=== PATIENT | female | born 1950 | race Caucasian/White ===

== ENCOUNTER 2020-09-08 08:41 | Inpatient (IN) | payer MEDICARE, SELFPAY ==
[2020-09-08] VITALS (11 sets, daily range): BP systolic 184–219; BP diastolic 57–95; PULSE 69–82; RESP 18–20; TEMP 36.6–37.6; O2SAT 93–96; BMI 30.2
--- NOTE | ~2020-09-08 | XR_ITS ---
EXAMINATION: XR abdomen/kub 1V INDICATION: Cough and nausea TECHNIQUE: Supine view of the abdomen is obtained. COMPARISON: None FINDINGS: The bowel gas pattern is normal. No dilated loops of bowel are seen. There is moderate oste oarthritis of the hips. Phleboliths are noted in the left pelvis. IMPRESSION: 1. . No radiographic correlate for the patient's symptoms. Reviewed, dictated and finalized at location A. O SPECIALIST
--- NOTE | ~2020-09-08 | CT_ITS ---
EXAMINATION: CT abdomen pelvis w con INDICATION: Vomiting TECHNIQUE: Computed tomographic images of the abdomen and pelvis were obtained after the administrati on of 100 cc of Omnipaque 350 intravenous contrast. The dose-length product (DLP) was 1168.06 mGy-cm. Automated exposure control and iterative reconstruction technique were employed. COMPARISON: None available FINDINGS: There are patchy groundglass opacities of the visualized lung bases. Cardiomegaly is noted. There are changes of prior cardiac surgery. Punctate calcifications in an otherwise normal spleen li vesta represent healed granulomatous disease. The gallbladder is surgically absent. There is mild enla rgement of the common bile duct and central intrahepatic ducts which is likely due to post cholecyste ctomy state. The liver, pancreas, and adrenal glands are normal. The kidneys are unremarkable. There is calcified atherosclerosis of the aorta and many of the other arteries. There is a retroaortic left renal vein. No pathologically enlarged abdominal or pelvic lymph nodes are identified. There is no f ree intraperitoneal gas or evidence of bowel obstruction. There is moderate lumbar spondylosis. There is mild osteoarthritis of the hips. IMPRESSION: 1. Groundglass opacities of the visualized lung bases with an appearance compatible with COVID 19 pne umonia versus other multifocal pneumonia. Reviewed, dictated and finalized at location A. ICATIONS COORDINATOR IMPRESSION: 1. Groundglass opacities of the visualized lung bases with an appearance compat ible with COVID 19 pneumonia versus other multifocal pneumonia.
--- NOTE | ~2020-09-08 | XR_ITS ---
EXAMINATION: XR chest 1V portable INDICATION: Cough TECHNIQUE: Portable AP chest at 0912 hours COMPARISON: 11/22/2017 FINDINGS: The lungs are free of acute opacities. There is no pleural effusion or pneumothorax. Cardio megaly is noted. Median sternotomy wires and mediastinal surgical clips are seen, likely from prior c oronary artery bypass grafting. IMPRESSION: 1. No acute cardiopulmonary abnormality. Reviewed, dictated and finalized at location A. NSIC DOCUMENT EXAMINER
--- NOTE | ~2020-09-08 | CT_ITS ---
EXAMINATION: CT brain wo con INDICATION: Vomiting and altered mental status COMPARISON: 11/21/2017 TECHNIQUE: Standard unenhanced head CT. The dose-length product (DLP) was 605.33 mGy-cm. The mA was a djusted according to patient size. Iterative reconstruction technique was employed. FINDINGS: There is no acute intraparenchymal hemorrhage. No evidence of mass lesion. No evidence of a cute infarction. There is mild periventricular and subcortical hypodensity probably related to small vessel ischemic disease. There is mild prominence of the sulci and ventricles related to cerebral atr ophy. Intracranial calcified cerebral atherosclerosis is noted. There are no extra-axial collections. There is no mass effect or midline shift. Changes in the globes are likely from ocular lens surgery. There is mild mucosal thickening of the paranasal sinuses. IMPRESSION: 1. No acute intracranial abnormality. 2. Age related findings. Reviewed, dictated and finalized at location A. HANGER
--- NOTE | ~2020-09-08 | XR_ITS ---
XR abdomen/kub 1V DATE: 09/15/2020 14:24 INDICATION: Constipation for a week TECHNIQUE: Portable supine AP views COMPARISON: 09/08/2020 CT abdomen pelvis FINDINGS: There is a prominent amount of fecal material in the sigmoid colon, with gas throughout muc h of the remainder of the colon. No small or large bowel abnormal dilatation is noted. No apparent in traperitoneal free air. No visceromegaly is detected. Status post sternotomy. Mild to moderate patchy bilateral pulmonary infiltrates or atelectasis. IMPRESSION: Prominent amount of feces and air in colon; no apparent obstruction Mild to moderate patchy bilateral pulmonary infiltrates or atelectasis Reviewed, dictated and finalized at Location A. Reviewed, dictated and finalized at location A. MAKER WOOD
--- NOTE | 2020-09-08 09:04 | ED.NAVMDI ---
HPI - Nausea/Vomiting/Diarrhea General Chief complaint: Nausea/Vomiting/Diarrhea Stated complaint: nausea Time Seen by Provider: 09/08/20 08:47 History of Present Illness HPI Narrative: 69 yo female presents from home for nausea and vomiting. She reportedly has chronic issues with this. She was just seen at the emergency depart at [facility] a few days ago for the same and left AMA. She tells me she feels awful, but is not answering most questions. History limited by medical condition. Related Data Home Medications Medication Instructions Recorded Confirmed aspirin 81 mg PO DAILY 09/08/20 09/08/20 bupropion HCl [Wellbutrin XL] 300 mg PO QAM 09/08/20 09/08/20 clopidogrel [Plavix] 75 mg PO DAILY 09/08/20 09/08/20 doxycycline monohydrate 100 mg PO BID 09/08/20 09/08/20 fluoxetine 60 mg PO DAILY 09/08/20 09/08/20 gabapentin 100 mg PO TID 09/08/20 09/08/20 hydralazine 100 mg PO TID 09/08/20 09/08/20 hydrochlorothiazide 25 mg PO DAILY 09/08/20 09/08/20 hydrocodone-acetaminophen [[place]] 1 tablet PO Q4H PRN 09/08/20 09/08/20 insulin glargine [Lantus Solostar 14 unit SUBCUT QPM 09/08/20 09/08/20 U-100 Insulin] insulin lispro [Humalog KwikPen 12 unit SUBCUT TID 09/08/20 09/08/20 Insulin] metoclopramide HCl [Reglan] 10 mg PO BID PRN 09/08/20 09/08/20 metoprolol tartrate 25 mg PO BID 09/08/20 09/08/20 ondansetron [Zofran ODT] 4 mg PO Q6H PRN 09/08/20 09/08/20 polyethylene glycol 3350 [Miralax] 17 g PO DAILY PRN 09/08/20 09/08/20 sennosides [Senokot] 8.6 mg PO BID 09/08/20 09/08/20 tamsulosin [Flomax] 0.4 mg PO HS 09/08/20 09/08/20 Allergies Allergy/AdvReac Type Severity Reaction Status Date / Time No Known Allergies Allergy Verified 09/08/20 08:47 Review of Systems Review of Systems: ROS unobtainable: Yes unobtainable due to medical condition [facility] Past Medical History Medical History (Updated 09/08/20 @ 18:08 by Carlos Benavides MD) Depression Diabetes mellitus HTN (hypertension) Myocardial infarction Social History Social History (Updated 09/08/20 @ 09:09 by Carlos Benavides MD) Smoking status: Never smoker Second hand tobacco smoke exposure: No Alcohol intake: never Substance use: never Substance use type: does not use Gender identity (if verbalized by the patient): Female Sexual Orientation (if Verbalized by the Patient): Straight or Heterosexual Spiritual care concerns: No Exam Const: General: no acute distress, alert and ill appearing chronically Orientation/consciousness: patient oriented x3 HENMT: Mouth: Yes dry mucous membranes Resp: Effort & Inspection: normal respiratory effort Auscultation: rhonchi Cardio: Rate: regular rate Rhythm: regular rhythm GI: Inspection: non-distended GI Palp: Yes Soft to palpation and No Tenderness to palpation present (GI) Skin: General skin exam: normal color Neuro: General: patient oriented x3 and moves all extremities Speech: normal speech Extrem: General: no edema Course Vital Signs Vital signs: Vital Signs Temperature 36.6 C 09/08/20 08:41 Pulse Rate 77 09/08/20 08:41 Respiratory Rate 20 09/08/20 08:41 Blood Pressure 217/95 H 09/08/20 08:41 Pulse Oximetry 95 09/08/20 08:41 Temperature 37.6 C 09/08/20 10:39 Pulse Rate 72 09/08/20 16:00 Respiratory Rate 18 09/08/20 14:15 Blood Pressure 187/64 H 09/08/20 14:15 Pulse Oximetry 94 09/08/20 14:15 MDM - Nausea/Vomiting/Diarrhea Differential Diagnosis Differential diagnosis: Likely gastroenteritis, dehydration and other (SBO, DKA, GERD, IBS) Medical Records Attestation: I reviewed the patient's medical records. Lab Data Attestation: I reviewed the patient's lab results. Result diagrams: 09/08/20 08:52 09/08/20 17:00 Labs: Lab Results 09/08/20 09/08/20 09/08/20 Range/Units 08:52 08:52 10:21 WBC 7.4 (4.5-10.0) K/mm3 RBC 4.49 (4.2-5.4) M/mm3 Hgb 12.4 (12.0-15.0) g/dL Hct 37.6
[2020-09-08 09:09] LABS: Basophils Percent Auto 0.1 % (0.2-1.2); Hematocrit 37.6 % (37.0-47.0); Hemoglobin 12.4 g/dL (12.0-15.0); Immature Granulocyte Absolute 0.03 K/mm3 (0.00-0.031); Immature Granulocyte Percent A 0.4 % (0-0.5); Lymphocytes Percent Auto 9.4 % (18.3-44.2); Mean Corpuscular Hemoglobin 27.6 pg (26-34); Mean Corpuscular Volume 83.7 fl (80-100); Mean Platelet Volume 11.8 fl (7.4-10.4); Monocytes Absolute Auto 0.6 K/mm3 (0.1-0.6); Monocytes Percent Auto 7.8 % (2.6-8.5); Neutrophils Absolute Auto 6.1 K/mm3 (1.3-6.7); Neutrophils Percent Auto 82.3 % (45.5-73.1); Platelet Count Result 228 k/mm3 (150-375); Red Blood Count 4.49 M/mm3 (4.2-5.4); Red Cell Distribution Width 14.4 % (11.5-14.5); White Blood Count 7.4 K/mm3 (4.5-10.0)
--- NOTE | 2020-09-08 09:15 | PC.NURSE ---
PT SIGNED FORM FOR MEDICAL RELEASE FROM [facility], CONSENT FAXED.
[2020-09-08] MEDS: SODIUM CHLORIDE 0.9% IV 1,000 ML 999 ML IV CONT (09:19)
[2020-09-08 09:23] LABS: Alanine Aminotransferase 34 U/L (4-35); Albumin Level 3.9 g/dL (3.5-5.1); Alkaline Phosphatase 147 U/L (38-126); Anion Gap 8 mmol/L (8-16); Aspartate Amino Transferase 40 U/L (14-36); Bilirubin,Total 0.9 mg/dL (0.2-1.3); Blood Urea Nitrogen 37 mg/dL (7-17); Calcium 9.1 mg/dL (8.4-10.2); Carbon Dioxide 32 mmol/L (22-30); Chloride 96 mmol/L (98-107); Estimated Glomerular Filt Rate 34; Glucose 333 mg/dL (65-105); Lipase 46 U/L (23-300); Potassium 3.6 mmol/L (3.4-5.0); Sodium 136 mmol/L (137-145)
[2020-09-08] MEDS: hydrALAZINE HCL 20 MG/ML VIAL IV PUSH (09:50)
[2020-09-08 10:41] LABS: Add Urine Microscopic? YES; Appearance Urine Clear (Clear); Bacteria Urine Trace /hpf; Bilirubin Urine Negative (Negative); Blood Urine Negative (Negative); Color Urine Yellow (Yellow); Glucose Urine UA 3+ mg/dL (Negative); Ketones Urine Negative (Negative); Leukocyte Esterase Ur Negative LEU/UL (Negative); Nitrate Urine Negative (Negative); Protein Urine 3+ mg/dL (Negative); Squamous Epithelial Cell Urine Rare /hpf (Few); Urobilinogen Urine Negative mg/dL (<2.0); WBC Urine 0-3 /hpf
[2020-09-08] MEDS: LABETALOL HCL INJ 100 MG/20 ML VIAL 20 MG IV PUSH (10:50)
--- NOTE | 2020-09-08 13:45 | PM.IMHP ---
H&P: HPI History of Present Illness Date/Time: 09/08/20 13:45 Chief Complaint: Nausea and vomiting. 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 She is a fair historian but is quite vague during our interview. She feels ?awful? and has for several days with generalized malaise, body aches, nausea, and vomiting. She is tired and run down and has no energy. Apparently she was seen emergency department at [facility] several days ago but left against medical advice. A CT of the abdomen and pelvis done on arrival to the emergency department demonstrated ground-glass opacities of the visualized lung bases consistent with pneumonia, possibly COVID-19 pneumonia. She has no known exposure to those positive for COVID-19 but lives with her daughter and son-in-law, who worked outside the home. No high fevers, chills, or sweats. She denies significant headache. No sinus congestion, rhinorrhea, otalgia, or odynophagia. No chest pain, cough, or shortness of breath. She denies dysphagia and concerns for aspiration. Review of Systems Review of Systems: Narrative: Twelve systems were reviewed with pertinent positives and negatives as per HPI. She has not been able to hold down her medication today due to ongoing nausea and vomiting. Glucose has been running high. No blurry vision, polydipsia, or polyuria. Her diabetes complicated by retinopathy, neuropathy, nephropathy, and gastroparesis. No dysuria. Currently in a walking boot on the right after having several surgeries due to ankle fracture. Except as documented, all other systems were reviewed and are negative. [facility] Past Medical History Medical History (Updated 09/08/20 @ 21:17 by Rosangela Chau PA-C) Chronic anemia Chronic kidney disease, stage 3 Baseline creatinine runs between 1.4 and 1.60. Depression Dyslipidemia Hypertension Insulin dependent type 2 diabetes mellitus Complicated by retinopathy, nephropathy, neuropathy, and gastroparesis. Myocardial infarction Obstructive sleep apnea Surgical History Surgical History (Updated 09/08/20 @ 21:14 by Rosangela Chau PA-C) History of ankle surgery ORIF right ankle fracture. History of cholecystectomy History of colonoscopy with polypectomy History of four vessel coronary artery bypass graft (~1999) History of heart artery stent History of hysterectomy (~1979) History of left knee replacement History of tonsillectomy Family History Family History (Updated 09/08/20 @ 21:12 by Rosangela Chau PA-C) Other Diabetes mellitus Heart disease Social History Social History (Updated 09/08/20 @ 21:12 by Rosangela Chau PA-C) Social History: The patient lives in [place] with her daughter and son-in-law. 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 Lifelong nonsmoker. No alcohol or illicit substance use. She designates her daughter Allie as her surrogate decision maker and wishes to be a full code. Smoking status: Never smoker Second hand tobacco smoke exposure: No Alcohol intake: never Substance use: never Substance use type: does not use Gender identity (if verbalized by the patient): Female Sexual Orientation (if Verbalized by the Patient): Straight or Heterosexual Spiritual care concerns: No Meds Home Medications and Allergies Home Medications Medication Instructions Recorded Confirmed Type aspirin 81 mg PO DAILY 09/08/20 09/08/20 History bupropion HCl [Wellbutrin XL] 300 mg PO QAM 09/08/20 09/08/20 History clopidogrel [Plavix] 75 mg PO DAILY 09/08/20 09/08/20 History doxycycline monohydrate 100 mg PO BID 09/08/20 09/08/20 History fluoxetine 60 mg PO DAILY
--- NOTE | 2020-09-08 14:55 | ADMGEN ---
This patient, Joann Alejandro, was admitted to [facility] Surg Room 303-01. Patient/family oriented to hospital policies and general routines including ID bracelet, bed and alarms, visiting hours, pain management, procedures, bathroom and other care routines, personal items, smoking policy, room service/diet, and visiting hours. Information on how to activate the Rapid Response Team has been discussed. Patient/Family are encouraged to report perceived risks to care and to ask questions if they do not understand what they are told or what they should do.
--- NOTE | 2020-09-08 15:56 | ECG_ITS ---
Measurements Intervals [place] Rate: 74 P: 29 WI: 135 QRS: 55 QRSD: 106 T: 55 QT: 441 QTc: 490 Interpretive Statements SINUS RHYTHM VENTRICULAR BIGEMINY NONSPECIFIC ST ABNORMALITY- DIFFUSE LEADS BASELINE ARTIFACT- I, II, III, AVR, AVL ,AVF ABNORMAL ECG Electronically Signed On 09-08-2020 16:29:39 [employer] by Kelton Solorio D.O.
--- NOTE | 2020-09-08 17:04 | PC.NURSE ---
Daughter Allie Called to make sure we knew that pt has surgical wounds under her cast. Also to let us know she is one antibiotics for this.
[2020-09-08 17:24] LABS: Anion Gap 9 mmol/L (8-16); Blood Urea Nitrogen 36 mg/dL (7-17); Calcium 8.4 mg/dL (8.4-10.2); Carbon Dioxide 30 mmol/L (22-30); Chloride 96 mmol/L (98-107); Estimated CRCL calculation 31 ml/min; Estimated Glomerular Filt Rate 34; Glucose 378 mg/dL (65-105); Magnesium 1.4 mg/dL (1.6-2.3); Potassium 3.5 mmol/L (3.4-5.0); Sodium 135 mmol/L (137-145)
[2020-09-08] MEDS: MAGNESIUM SULF 2 GM/WATER 50ML 2 GM/50 ML BAG IVPB (21:44)
[2020-09-08 21:57] LABS: Glucose Point of Care 318 (65-105)
[2020-09-08] MEDS: TAMSULOSIN HCL 0.4 MG CAPSULE PO (22:00)
[2020-09-08] MEDS: METOPROLOL TARTRATE 25 MG TABLET PO (22:00)
[2020-09-08] MEDS: hydrALAZINE HCL 50 MG TABLET 100 MG PO (22:00)
[2020-09-08] MEDS: GABAPENTIN 100 MG CAPSULE PO (22:00)
[2020-09-08 23:03] LABS: Hemoglobin A1C 7.4 % (<5.7)
[2020-09-09] VITALS (8 sets, daily range): BP systolic 127–190; BP diastolic 45–98; PULSE 63–88; RESP 16–20; TEMP 36.3–37.4; O2SAT 93–97
[2020-09-09] MEDS: hydrALAZINE HCL 20 MG/ML VIAL 10 MG IV PUSH (04:18)
[2020-09-09 06:12] LABS: Hematocrit 35.2 % (37.0-47.0); Hemoglobin 11.6 g/dL (12.0-15.0); Mean Corpuscular Hemoglobin 27.9 pg (26-34); Mean Corpuscular Volume 84.6 fl (80-100); Mean Platelet Volume 12.1 fl (7.4-10.4); Platelet Count Result 197 k/mm3 (150-375); Red Blood Count 4.16 M/mm3 (4.2-5.4); Red Cell Distribution Width 14.7 % (11.5-14.5); White Blood Count 7.1 K/mm3 (4.5-10.0)
[2020-09-09 06:26] LABS: Alanine Aminotransferase 30 U/L (4-35); Albumin Level 3.5 g/dL (3.5-5.1); Alkaline Phosphatase 134 U/L (38-126); Anion Gap 7 mmol/L (8-16); Aspartate Amino Transferase 36 U/L (14-36); Bilirubin,Total 0.7 mg/dL (0.2-1.3); Blood Urea Nitrogen 41 mg/dL (7-17); CRP 2.9 mg/dL (<1.0); Calcium 8.8 mg/dL (8.4-10.2); Carbon Dioxide 30 mmol/L (22-30); Chloride 99 mmol/L (98-107); Estimated CRCL calculation 31 ml/min; Estimated Glomerular Filt Rate 34; Glucose 334 mg/dL (65-105); Lactate Dehydrogenase 529 U/L (313-618); Potassium 3.4 mmol/L (3.4-5.0); Sodium 136 mmol/L (137-145)
[2020-09-09 09:04] LABS: Glucose Point of Care 406 (65-105)
[2020-09-09] MEDS: GABAPENTIN 100 MG CAPSULE PO ×3 (10:43→18:42)
[2020-09-09] MEDS: METOPROLOL TARTRATE 25 MG TABLET PO ×2 (10:43→21:10)
[2020-09-09] MEDS: POTASSIUM CHLORIDE 20 MEQ TABLET 40 MEQ PO (10:43)
[2020-09-09] MEDS: SENNOSIDES 8.6 MG TABLET PO ×2 (10:43→18:42)
[2020-09-09] MEDS: FLUoxetine HCL 20 MG CAPSULE 60 MG PO (10:43)
[2020-09-09] MEDS: buPROPion HCL XL (24 HR) 150 MG TABCR 300 MG PO (10:43)
[2020-09-09] MEDS: hydroCHLOROthiazide 25 MG TABLET PO (10:44)
[2020-09-09] MEDS: INSULIN ASPART (*BKC) 100 UNITS/ML SUB-Q ×3 (10:44→18:42)
[2020-09-09] MEDS: ASPIRIN 81 MG ENTERIC TABLET PO (10:44)
[2020-09-09] MEDS: CLOPIDOGREL BISULFATE 75 MG TABLET PO (10:44)
[2020-09-09] MEDS: hydrALAZINE HCL 50 MG TABLET 100 MG PO ×3 (10:44→18:42)
[2020-09-09 12:28] LABS: Glucose Point of Care 456 (65-105)
[2020-09-09] MEDS: INSULIN GLARGINE (*BKC) 100 UNITS/ML 10 UNITS SUB-Q (13:28)
[2020-09-09] MEDS: ONDANSETRON INJ 4 MG/2 ML VIAL IV PUSH ×2 (13:29→21:09)
--- NOTE | 2020-09-09 14:42 | PM.IMPN ---
Progress Note: A&P Assessment and Plan (1) Nausea & vomiting: Code(s): R11.2 - Nausea with vomiting, unspecified Status: Acute Assessment and Plan: 09/09/20 14:42 patient is 69-year-old female with history of type 2 diabetes insulin dependent, with diabetic gastroparesis and persistent nausea or vomiting patient presented emergency department with the complaints of nausea or vomiting CT scan of the abdomen was done to further evaluate, did not show significant abdominal pathology however the lung bases suggest COVID-19 pneumonia ground-glass appearance although see denies any complaint of cough shortness of breath fever or chills, patient is very hard of fairly unable to provide detailed review of symptoms or history, is been isolated, will follow-up and COVID, patient is treated with doxycycline and Rocephin will follow-up on COVID if positive will start the patient on dexamethasone, remdesivir and further recommendation to follow. (2) Suspected 2019-nCoV infection: Code(s): Z20.822 - Contact with and (suspected) exposure to COVID-19 Status: Acute Assessment and Plan: Follow-up intestine plan accordingly (3) Dehydration: Code(s): E86.0 - Dehydration Status: Acute Assessment and Plan: Will gently hydrate the patient (4) Insulin dependent type 2 diabetes mellitus: Code(s): E11.9 - Type 2 diabetes mellitus without complications; Z79.4 - [facility] (current) use of insulin Status: Inactive Assessment and Plan: Will continue home regimen and monitor with sliding scale adjust her insulin as needed (5) Dyslipidemia: Code(s): E78.5 - Hyperlipidemia, unspecified Status: Inactive Assessment and Plan: Continue home regimen (6) Hypertension: Code(s): I10 - Essential (primary) hypertension Status: Inactive Assessment and Plan: Continue home regimen and monitor (7) Chronic kidney disease, stage 3: Code(s): N18.30 - Chronic kidney disease, stage 3 unspecified Status: Inactive Assessment and Plan: Acute on chronic kidney disease most likely secondary to dehydration will gently hydrate the patient and monitor her kidney function (8) Obstructive sleep apnea: Code(s): G47.33 - Obstructive sleep apnea (adult) (pediatric) Status: Inactive Assessment and Plan: Will try to get CPAP for the patient Additional Plan The patient is being admitted to the hospital given ongoing nausea and vomiting with the inability to hold down medications. Her blood pressures have thus been poorly controlled due to same. CT of the abdomen pelvis did not show any acute intra-abdominal findings but did note pneumonia in the lower lobes of the lung. She is thus a person under investigation for COVID-19 and has been placed in isolation pending SARS-CoV-2 by PCR. She did receive IV fluids in the emergency department which I will discontinue to avoid volume overload. Will continue antibiotics for now. Her home medications will be reviewed and resumed, transition to IV form if needed should she continued to have vomiting. Her creatinine is stable on review of previous labs. I suspect her hemoglobin and hematocrit will fall somewhat hydration. Check hemoglobin A1c. Initiate sliding scale insulin, Accu-Cheks, and hypoglycemic protocol. CPAP available for her use while hospitalized. Subjective Date/time seen: 09/09/20 14:42 patient is 69-year-old female with history of type 2 diabetes insulin dependent, with diabetic gastroparesis and persistent nausea or vomiting patient presented emergency department with the complaints of nausea or vomiting CT scan of the abdomen was done to further evaluate, did not show significant abdominal pathology however the lung bases suggest COVID-19 pneumonia ground-glass appearance although see denies any complaint of cough shortness of breath fever or chills, patient is very hard of fairly unable to provid
[2020-09-09 17:57] LABS: Glucose Point of Care 243 (65-105)
[2020-09-09 18:27] LABS: SARS-CoV-2 RNA PCR Positive
[2020-09-09] MEDS: INSULIN GLARGINE (*BKC) 100 UNITS/ML 14 UNITS SUB-Q (18:42)
[2020-09-09] MEDS: TAMSULOSIN HCL 0.4 MG CAPSULE PO (21:10)
[2020-09-09 21:36] LABS: Glucose Point of Care 220 (65-105)
[2020-09-10] VITALS (10 sets, daily range): BP systolic 152–188; BP diastolic 40–72; PULSE 61–75; RESP 16–22; TEMP 37.1–37.8; O2SAT 91–96
[2020-09-10 06:13] LABS: Basophils Percent Auto 0.1 % (0.2-1.2); Hematocrit 34.1 % (37.0-47.0); Hemoglobin 11.2 g/dL (12.0-15.0); Immature Granulocyte Absolute 0.07 K/mm3 (0.00-0.031); Immature Granulocyte Percent A 0.7 % (0-0.5); Lymphocytes Absolute Auto 0.87 K/mm3 (0.9-3.2); Lymphocytes Percent Auto 8.7 % (18.3-44.2); Mean Corpuscular HGB Conc 32.8 g/dl (32-36); Mean Corpuscular Hemoglobin 27.3 pg (26-34); Mean Corpuscular Volume 83.2 fl (80-100); Mean Platelet Volume 12.1 fl (7.4-10.4); Monocytes Absolute Auto 0.6 K/mm3 (0.1-0.6); Neutrophils Absolute Auto 8.4 K/mm3 (1.3-6.7); Neutrophils Percent Auto 84.5 % (45.5-73.1); Platelet Count Result 213 k/mm3 (150-375); Red Cell Distribution Width 14.7 % (11.5-14.5)
[2020-09-10 06:26] LABS: Alanine Aminotransferase 25 U/L (4-35); Albumin Level 3.4 g/dL (3.5-5.1); Alkaline Phosphatase 119 U/L (38-126); Anion Gap 8 mmol/L (8-16); Aspartate Amino Transferase 36 U/L (14-36); Bilirubin,Total 0.7 mg/dL (0.2-1.3); Blood Urea Nitrogen 51 mg/dL (7-17); CRP 4.4 mg/dL (<1.0); Calcium 8.8 mg/dL (8.4-10.2); Carbon Dioxide 31 mmol/L (22-30); Chloride 98 mmol/L (98-107); Estimated CRCL calculation 22 ml/min; Estimated Glomerular Filt Rate 23; Glucose 164 mg/dL (65-105); Magnesium 1.9 mg/dL (1.6-2.3); Potassium 3.2 mmol/L (3.4-5.0); Sodium 137 mmol/L (137-145)
[2020-09-10] MEDS: ONDANSETRON INJ 4 MG/2 ML VIAL IV PUSH ×2 (08:13→12:45)
[2020-09-10 08:18] LABS: Glucose Point of Care 176 (65-105)
[2020-09-10] MEDS: hydrALAZINE HCL 50 MG TABLET 100 MG PO ×3 (10:02→16:25)
[2020-09-10] MEDS: ASCORBIC ACID 500 MG TABLET PO (10:05)
[2020-09-10] MEDS: buPROPion HCL XL (24 HR) 150 MG TABCR 300 MG PO (10:06)
[2020-09-10] MEDS: ASPIRIN 81 MG ENTERIC TABLET PO (10:06)
[2020-09-10] MEDS: CHOLECALCIFEROL 1,000 UNITS TABLET 1000 UNITS PO (10:07)
[2020-09-10] MEDS: DEXAMETHASONE SOD PHOS INJ 4 MG/ML VIAL 6 MG IV PUSH (10:08)
[2020-09-10] MEDS: CLOPIDOGREL BISULFATE 75 MG TABLET PO (10:08)
[2020-09-10] MEDS: FLUoxetine HCL 20 MG CAPSULE 60 MG PO (10:09)
[2020-09-10] MEDS: GABAPENTIN 100 MG CAPSULE PO ×3 (10:10→16:25)
[2020-09-10] MEDS: hydroCHLOROthiazide 25 MG TABLET PO (10:10)
[2020-09-10] MEDS: METOPROLOL TARTRATE 25 MG TABLET PO ×2 (10:11→20:03)
[2020-09-10] MEDS: SENNOSIDES 8.6 MG TABLET PO ×2 (10:12→16:25)
[2020-09-10] MEDS: ZINC SULFATE 220 MG CAPSULE PO (10:13)
--- NOTE | 2020-09-10 12:03 | PCPTNOTE ---
The PT treatment was unable to be completed today due to patient refusal. Will continue per Plan of Care frequency and duration.
[2020-09-10] MEDS: hydrALAZINE HCL 20 MG/ML VIAL 10 MG IV PUSH (12:46)
[2020-09-10] MEDS: INSULIN ASPART (*BKC) 100 UNITS/ML SUB-Q ×2 (12:49→17:51)
[2020-09-10 12:56] LABS: Glucose Point of Care 313 (65-105)
--- NOTE | 2020-09-10 14:27 | PM.IMPN ---
Progress Note: A&P Assessment and Plan (1) Nausea & vomiting: Code(s): R11.2 - Nausea with vomiting, unspecified Status: Acute Assessment and Plan: 09/10/20 14:27 patient is 69-year-old female with history of type 2 diabetes insulin dependent, with diabetic gastroparesis and persistent nausea or vomiting patient presented emergency department with the complaints of nausea or vomiting CT scan of the abdomen was done to further evaluate, did not show significant abdominal pathology however the lung bases suggest COVID-19 pneumonia ground-glass appearance although see denies any complaint of cough shortness of breath fever or chills, patient is very hard of fairly unable to provide detailed review of symptoms or history, is been isolated, will follow-up and COVID, patient is treated with doxycycline and Rocephin will follow-up on COVID if positive will start the patient on dexamethasone, remdesivir and further recommendation to follow. 09/10/20 today patient COVID test is positive I have started the patient dexamethasone, vitamin-D, vitamin-C, zinc and patient is receiving oxygen, unable to give patient remdesivir as creatinine is elevated and GFR is 23, patient also has a complaint of nausea and constipation, unable to give patient Reglan interaction with SSRI, will get the patient Colace and MiraLax scheduled, patient is very hard of hearing and currently is quite somnolent will continue present management and further recommendation to follow (2) Suspected 2019-nCoV infection: Code(s): Z20.822 - Contact with and (suspected) exposure to COVID-19 Status: Acute Assessment and Plan: Follow-up intestine plan accordingly (3) Dehydration: Code(s): E86.0 - Dehydration Status: Acute Assessment and Plan: Will gently hydrate the patient (4) Insulin dependent type 2 diabetes mellitus: Code(s): E11.9 - Type 2 diabetes mellitus without complications; Z79.4 - terminologist (current) use of insulin Status: Inactive Assessment and Plan: Will continue home regimen and monitor with sliding scale adjust her insulin as needed (5) Dyslipidemia: Code(s): E78.5 - Hyperlipidemia, unspecified Status: Inactive Assessment and Plan: Continue home regimen (6) Hypertension: Code(s): I10 - Essential (primary) hypertension Status: Inactive Assessment and Plan: Continue home regimen and monitor (7) Chronic kidney disease, stage 3: Code(s): N18.30 - Chronic kidney disease, stage 3 unspecified Status: Inactive Assessment and Plan: Acute on chronic kidney disease most likely secondary to dehydration will gently hydrate the patient and monitor her kidney function (8) Obstructive sleep apnea: Code(s): G47.33 - Obstructive sleep apnea (adult) (pediatric) Status: Inactive Assessment and Plan: Will try to get CPAP for the patient Subjective Date/time seen: 09/10/20 14:27 patient is 69-year-old female with history of type 2 diabetes insulin dependent, with diabetic gastroparesis and persistent nausea or vomiting patient presented emergency department with the complaints of nausea or vomiting CT scan of the abdomen was done to further evaluate, did not show significant abdominal pathology however the lung bases suggest COVID-19 pneumonia ground-glass appearance although see denies any complaint of cough shortness of breath fever or chills, patient is very hard of fairly unable to provide detailed review of symptoms or history, is been isolated, will follow-up and COVID, patient is treated with doxycycline and Rocephin will follow-up on COVID if positive will start the patient on dexamethasone, remdesivir and further recommendation to follow. 09/10/20 today patient COVID test is positive I have started the patient dexamethasone, vitamin-D, vitamin-C, zinc and patient is receiving oxygen, unable to give patient remdesivir as creatinine is el
[2020-09-10] MEDS: DOCUSATE SODIUM 100 MG CAPSULE PO ×2 (16:25→20:03)
[2020-09-10] MEDS: polyethylene glycoL 3350 17 GM POWD.PACK PO (16:25)
[2020-09-10 17:10] LABS: Glucose Point of Care 246 (65-105)
[2020-09-10] MEDS: INSULIN GLARGINE (*BKC) 100 UNITS/ML 14 UNITS SUB-Q (17:51)
[2020-09-10] MEDS: TAMSULOSIN HCL 0.4 MG CAPSULE PO (20:03)
[2020-09-10 21:07] LABS: Glucose Point of Care 230 (65-105)
[2020-09-11] VITALS (8 sets, daily range): BP systolic 117–171; BP diastolic 43–66; PULSE 48–80; RESP 18–20; TEMP 36.6–37.1; O2SAT 93–96
[2020-09-11] MEDS: ONDANSETRON INJ 4 MG/2 ML VIAL IV PUSH ×2 (04:29→10:36)
[2020-09-11 06:22] LABS: Basophils Percent Auto 0.1 % (0.2-1.2); Eosinophils Percent Auto 0.1 % (0-4.4); Hematocrit 36.6 % (37.0-47.0); Immature Granulocyte Absolute 0.06 K/mm3 (0.00-0.031); Immature Granulocyte Percent A 0.6 % (0-0.5); Lymphocytes Percent Auto 8.5 % (18.3-44.2); Mean Corpuscular HGB Conc 32.8 g/dl (32-36); Mean Corpuscular Hemoglobin 27.9 pg (26-34); Mean Corpuscular Volume 85.1 fl (80-100); Mean Platelet Volume 12.4 fl (7.4-10.4); Monocytes Absolute Auto 0.6 K/mm3 (0.1-0.6); Monocytes Percent Auto 5.8 % (2.6-8.5); Neutrophils Percent Auto 84.9 % (45.5-73.1); Platelet Count Result 216 k/mm3 (150-375); Red Cell Distribution Width 14.7 % (11.5-14.5); White Blood Count 9.5 K/mm3 (4.5-10.0)
[2020-09-11 07:03] LABS: Alanine Aminotransferase 27 U/L (4-35); Albumin Level 3.4 g/dL (3.5-5.1); Alkaline Phosphatase 121 U/L (38-126); Anion Gap 11 mmol/L (8-16); Aspartate Amino Transferase 45 U/L (14-36); Bilirubin,Total 0.7 mg/dL (0.2-1.3); Blood Urea Nitrogen 55 mg/dL (7-17); CRP 5.3 mg/dL (<1.0); Calcium 8.5 mg/dL (8.4-10.2); Carbon Dioxide 28 mmol/L (22-30); Chloride 96 mmol/L (98-107); Estimated CRCL calculation 26 ml/min; Estimated Glomerular Filt Rate 28; Glucose 169 mg/dL (65-105); Potassium 3.1 mmol/L (3.4-5.0); Sodium 135 mmol/L (137-145)
[2020-09-11 08:24] LABS: Glucose Point of Care 248 (65-105)
[2020-09-11] MEDS: POTASSIUM CHLORIDE 20 MEQ TABLET 40 MEQ PO (10:07)
[2020-09-11] MEDS: hydrALAZINE HCL 50 MG TABLET 100 MG PO ×3 (10:07→17:43)
[2020-09-11] MEDS: ASPIRIN 81 MG ENTERIC TABLET PO (10:08)
[2020-09-11] MEDS: ASCORBIC ACID 500 MG TABLET PO (10:08)
[2020-09-11] MEDS: FLUoxetine HCL 20 MG CAPSULE 60 MG PO (10:09)
[2020-09-11] MEDS: METOPROLOL TARTRATE 25 MG TABLET PO (10:09)
[2020-09-11] MEDS: SENNOSIDES 8.6 MG TABLET PO ×2 (10:09→17:43)
[2020-09-11] MEDS: DOCUSATE SODIUM 100 MG CAPSULE PO ×2 (10:10→21:01)
[2020-09-11] MEDS: DEXAMETHASONE SOD PHOS INJ 4 MG/ML VIAL 6 MG IV PUSH (10:10)
[2020-09-11] MEDS: hydroCHLOROthiazide 25 MG TABLET PO (10:11)
[2020-09-11] MEDS: polyethylene glycoL 3350 17 GM POWD.PACK PO (10:12)
[2020-09-11] MEDS: GABAPENTIN 100 MG CAPSULE PO ×3 (10:12→17:43)
[2020-09-11] MEDS: CLOPIDOGREL BISULFATE 75 MG TABLET PO (10:12)
[2020-09-11] MEDS: ZINC SULFATE 220 MG CAPSULE PO (10:12)
[2020-09-11] MEDS: CHOLECALCIFEROL 1,000 UNITS TABLET 1000 UNITS PO (10:13)
[2020-09-11] MEDS: INSULIN ASPART (*BKC) 100 UNITS/ML SUB-Q ×3 (10:13→17:42)
[2020-09-11] MEDS: buPROPion HCL XL (24 HR) 150 MG TABCR 300 MG PO (10:13)
--- NOTE | 2020-09-11 11:39 | PCOTNOTE ---
Attempted to see patient this am, however patient declined stating, I can't right now. I feel like I'm gonna throw up.
[2020-09-11 12:30] LABS: Glucose Point of Care 302 (65-105)
--- NOTE | 2020-09-11 12:58 | PCOTNOTE ---
Attempted to see patient this pm, however patient stated, I won't be able to do it today. Pt c/o nausea and feeling like vomiting.
--- NOTE | 2020-09-11 13:15 | PCPTNOTE ---
The PT treatment was unable to be completed today due to patient refusal. Educated patient on importance of mobility and exercise, patient continued to refuse. Will continue per Plan of Care frequency and duration.
--- NOTE | 2020-09-11 16:46 | PM.IMPN ---
Progress Note: A&P Assessment and Plan (1) Nausea & vomiting: Code(s): R11.2 - Nausea with vomiting, unspecified Status: Acute Assessment and Plan: 09/11/20 16:46 patient is 69-year-old female with history of type 2 diabetes insulin dependent, with diabetic gastroparesis and persistent nausea or vomiting patient presented emergency department with the complaints of nausea or vomiting CT scan of the abdomen was done to further evaluate, did not show significant abdominal pathology however the lung bases suggest COVID-19 pneumonia ground-glass appearance although see denies any complaint of cough shortness of breath fever or chills, patient is very hard of hearing unable to provide detailed review of symptoms or history, is been isolated, will follow-up and COVID, patient is treated with doxycycline and Rocephin will follow-up on COVID if positive will start the patient on dexamethasone, remdesivir and further recommendation to follow. 09/10/20 today patient COVID test is positive I have started the patient dexamethasone, vitamin-D, vitamin-C, zinc and patient is receiving oxygen, unable to give patient remdesivir as creatinine is elevated and GFR is 23, patient also has a complaint of nausea and constipation, unable to give patient Reglan interaction with SSRI, will get the patient Colace and MiraLax scheduled, patient is very hard of hearing and currently is quite somnolent will continue present management and further recommendation to follow. 09/11 patient has been without fever and not requiring any oxygen while in hospital patient does not show any overt signs or symptoms of COVID, is still complains of nausea and upset stomach, be have given her Colace and MiraLax possible diabetic gastroparesis, patient has a history injury to lower extremity difficult to ambulate, due to patient persistent nausea patient has difficulty participating in physical therapy however patient will benefit from acute rehab. I have discuss patient daughter who is her caregiver and she is positive for COVID and feeling well and if patient returns home it will be difficulty to manage as patient assistance her ADL. (2) Suspected 2019-nCoV infection: Code(s): Z20.822 - Contact with and (suspected) exposure to COVID-19 Status: Acute Assessment and Plan: Follow-up intestine plan accordingly (3) Dehydration: Code(s): E86.0 - Dehydration Status: Acute Assessment and Plan: Will gently hydrate the patient (4) Insulin dependent type 2 diabetes mellitus: Code(s): E11.9 - Type 2 diabetes mellitus without complications; Z79.4 - nursing home (current) use of insulin Status: Inactive Assessment and Plan: Will continue home regimen and monitor with sliding scale adjust her insulin as needed (5) Dyslipidemia: Code(s): E78.5 - Hyperlipidemia, unspecified Status: Inactive Assessment and Plan: Continue home regimen (6) Hypertension: Code(s): I10 - Essential (primary) hypertension Status: Inactive Assessment and Plan: Continue home regimen and monitor (7) Chronic kidney disease, stage 3: Code(s): N18.30 - Chronic kidney disease, stage 3 unspecified Status: Inactive Assessment and Plan: Acute on chronic kidney disease most likely secondary to dehydration will gently hydrate the patient and monitor her kidney function (8) Obstructive sleep apnea: Code(s): G47.33 - Obstructive sleep apnea (adult) (pediatric) Status: Inactive Assessment and Plan: Will try to get CPAP for the patient Subjective Date/time seen: 09/11/20 16:46 patient is 69-year-old female with history of type 2 diabetes insulin dependent, with diabetic gastroparesis and persistent nausea or vomiting patient presented emergency department with the complaints of nausea or vomiting CT scan of the abdomen was done to further evaluate, did not show significant abdominal patholog
[2020-09-11 17:27] LABS: Glucose Point of Care 257 (65-105)
[2020-09-11] MEDS: INSULIN GLARGINE (*BKC) 100 UNITS/ML 14 UNITS SUB-Q (17:43)
[2020-09-11] MEDS: TAMSULOSIN HCL 0.4 MG CAPSULE PO (21:01)
[2020-09-11 21:06] LABS: Glucose Point of Care 183 (65-105)
[2020-09-12] VITALS (10 sets, daily range): BP systolic 143–178; BP diastolic 55–70; PULSE 68–82; RESP 16–22; TEMP 36.1–37.3; O2SAT 90–96
[2020-09-12] MEDS: ONDANSETRON INJ 4 MG/2 ML VIAL IV PUSH ×4 (00:19→18:05)
[2020-09-12] MEDS: ACETAMINOPHEN 325 MG TABLET 650 MG PO (03:09)
[2020-09-12 06:09] LABS: Basophils Percent Auto 0.1 % (0.2-1.2); Hematocrit 34.9 % (37.0-47.0); Hemoglobin 11.5 g/dL (12.0-15.0); Immature Granulocyte Absolute 0.07 K/mm3 (0.00-0.031); Immature Granulocyte Percent A 0.8 % (0-0.5); Lymphocytes Absolute Auto 0.54 K/mm3 (0.9-3.2); Lymphocytes Percent Auto 6.4 % (18.3-44.2); Mean Corpuscular Hemoglobin 27.6 pg (26-34); Mean Corpuscular Volume 83.9 fl (80-100); Mean Platelet Volume 12.4 fl (7.4-10.4); Monocytes Absolute Auto 0.5 K/mm3 (0.1-0.6); Monocytes Percent Auto 6.3 % (2.6-8.5); Neutrophils Absolute Auto 7.3 K/mm3 (1.3-6.7); Neutrophils Percent Auto 86.4 % (45.5-73.1); Platelet Count Result 219 k/mm3 (150-375); Red Blood Count 4.16 M/mm3 (4.2-5.4); Red Cell Distribution Width 14.7 % (11.5-14.5); White Blood Count 8.5 K/mm3 (4.5-10.0)
[2020-09-12 06:26] LABS: Alanine Aminotransferase 21 U/L (4-35); Albumin Level 3.2 g/dL (3.5-5.1); Alkaline Phosphatase 109 U/L (38-126); Anion Gap 5 mmol/L (8-16); Aspartate Amino Transferase 35 U/L (14-36); Bilirubin,Total 0.7 mg/dL (0.2-1.3); Blood Urea Nitrogen 47 mg/dL (7-17); CRP 4.7 mg/dL (<1.0); Calcium 8.5 mg/dL (8.4-10.2); Carbon Dioxide 32 mmol/L (22-30); Chloride 97 mmol/L (98-107); Estimated CRCL calculation 29 ml/min; Estimated Glomerular Filt Rate 32; Glucose 111 mg/dL (65-105); Potassium 3.4 mmol/L (3.4-5.0); Sodium 134 mmol/L (137-145)
[2020-09-12] MEDS: CHOLECALCIFEROL 1,000 UNITS TABLET 1000 UNITS PO (08:13)
[2020-09-12] MEDS: ZINC SULFATE 220 MG CAPSULE PO (08:13)
[2020-09-12] MEDS: polyethylene glycoL 3350 17 GM POWD.PACK PO ×2 (08:13→20:02)
[2020-09-12] MEDS: ASPIRIN 81 MG ENTERIC TABLET PO (08:13)
[2020-09-12] MEDS: buPROPion HCL XL (24 HR) 150 MG TABCR 300 MG PO (08:13)
[2020-09-12] MEDS: FLUoxetine HCL 20 MG CAPSULE 60 MG PO (08:13)
[2020-09-12] MEDS: DEXAMETHASONE SOD PHOS INJ 4 MG/ML VIAL 6 MG IV PUSH (08:13)
[2020-09-12] MEDS: GABAPENTIN 100 MG CAPSULE PO ×3 (08:13→18:04)
[2020-09-12] MEDS: SENNOSIDES 8.6 MG TABLET PO ×2 (08:13→18:03)
[2020-09-12] MEDS: ASCORBIC ACID 500 MG TABLET PO (08:13)
[2020-09-12] MEDS: DOCUSATE SODIUM 100 MG CAPSULE PO ×2 (08:13→20:01)
[2020-09-12] MEDS: CLOPIDOGREL BISULFATE 75 MG TABLET PO (08:13)
[2020-09-12] MEDS: METOPROLOL TARTRATE 25 MG TABLET PO ×2 (08:15→20:02)
[2020-09-12] MEDS: hydroCHLOROthiazide 25 MG TABLET PO (08:15)
[2020-09-12] MEDS: hydrALAZINE HCL 50 MG TABLET 100 MG PO ×3 (08:15→18:04)
[2020-09-12 08:50] LABS: Glucose Point of Care 120 (65-105)
[2020-09-12] MEDS: POTASSIUM CHLORIDE 20 MEQ TABLET 40 MEQ PO (09:40)
[2020-09-12] MEDS: hydrALAZINE HCL 20 MG/ML VIAL 10 MG IV PUSH (12:57)
[2020-09-12 13:24] LABS: Glucose Point of Care 199 (65-105)
--- NOTE | 2020-09-12 14:39 | PM.IMPN ---
Progress Note: A&P Assessment and Plan (1) Nausea & vomiting: Code(s): R11.2 - Nausea with vomiting, unspecified Status: Acute Assessment and Plan: 09/12/20 14:39 patient is 69-year-old female with history of type 2 diabetes insulin dependent, with diabetic gastroparesis and persistent nausea or vomiting patient presented emergency department with the complaints of nausea or vomiting CT scan of the abdomen was done to further evaluate, did not show significant abdominal pathology however the lung bases suggest COVID-19 pneumonia ground-glass appearance although see denies any complaint of cough shortness of breath fever or chills, patient is very hard of hearing unable to provide detailed review of symptoms or history, is been isolated, will follow-up and COVID, patient is treated with doxycycline and Rocephin will follow-up on COVID if positive will start the patient on dexamethasone, remdesivir and further recommendation to follow. 09/10/20 today patient COVID test is positive I have started the patient dexamethasone, vitamin-D, vitamin-C, zinc and patient is receiving oxygen, unable to give patient remdesivir as creatinine is elevated and GFR is 23, patient also has a complaint of nausea and constipation, unable to give patient Reglan interaction with SSRI, will get the patient Colace and MiraLax scheduled, patient is very hard of hearing and currently is quite somnolent will continue present management and further recommendation to follow. 09/11 patient has been without fever and not requiring any oxygen while in hospital patient does not show any overt signs or symptoms of COVID, is still complains of nausea and upset stomach, be have given her Colace and MiraLax possible diabetic gastroparesis, patient has a history injury to lower extremity difficult to ambulate, due to patient persistent nausea patient has difficulty participating in physical therapy however patient will benefit from acute rehab. I have discuss patient daughter who is her caregiver and she is positive for COVID and feeling well and if patient returns home it will be difficulty to manage as patient assistance her ADL. 09/12 patient is a COVID positive but has no fever and not requiring any oxygen, patient has persisting nausea upset stomach, patient has a history of diabetes most likely diabetic gastroparesis, unable to take reglan due to SSRI, last BM was yesterday, and giving patient Colace and MiraLax patient also has a injuryto lower extremity and has a cast. 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 Status: Inactive Assessment and Plan: Will continue home regimen and monitor with sliding scale adjust her insulin as needed (5) Dyslipidemia: Code(s): E78.5 - Hyperlipidemia, unspecified Status: Inactive Assessment and Plan: Continue home regimen (6) Hypertension: Code(s): I10 - Essential (primary) hypertension Status: Inactive Assessment and Plan: Continue home regimen and monitor (7) Chronic kidney disease, stage 3: Code(s): N18.30 - Chronic kidney disease, stage 3 unspecified Status: Inactive Assessment and Plan: Acute on chronic kidney disease most likely secondary to dehydration will gently hydrate the patient and monitor her kidney function (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
[2020-09-12 18:01] LABS: Glucose Point of Care 237 (65-105)
[2020-09-12] MEDS: INSULIN ASPART (*BKC) 100 UNITS/ML SUB-Q (18:04)
[2020-09-12] MEDS: INSULIN GLARGINE (*BKC) 100 UNITS/ML 14 UNITS SUB-Q (18:05)
[2020-09-12] MEDS: TAMSULOSIN HCL 0.4 MG CAPSULE PO (20:01)
[2020-09-12 21:15] LABS: Glucose Point of Care 192 (65-105)
[2020-09-13] VITALS (8 sets, daily range): BP systolic 132–163; BP diastolic 52–70; PULSE 67–84; RESP 16–20; TEMP 36.2–37.2; O2SAT 94–98
[2020-09-13] MEDS: ONDANSETRON INJ 4 MG/2 ML VIAL IV PUSH (06:12)
[2020-09-13 06:13] LABS: Basophils Percent Auto 0.2 % (0.2-1.2); Hematocrit 35.2 % (37.0-47.0); Hemoglobin 11.7 g/dL (12.0-15.0); Immature Granulocyte Absolute 0.06 K/mm3 (0.00-0.031); Immature Granulocyte Percent A 0.6 % (0-0.5); Lymphocytes Absolute Auto 0.62 K/mm3 (0.9-3.2); Lymphocytes Percent Auto 6.6 % (18.3-44.2); Mean Corpuscular HGB Conc 33.2 g/dl (32-36); Mean Corpuscular Hemoglobin 27.3 pg (26-34); Mean Corpuscular Volume 82.1 fl (80-100); Mean Platelet Volume 12.3 fl (7.4-10.4); Monocytes Absolute Auto 0.5 K/mm3 (0.1-0.6); Monocytes Percent Auto 5.4 % (2.6-8.5); Neutrophils Absolute Auto 8.2 K/mm3 (1.3-6.7); Neutrophils Percent Auto 87.2 % (45.5-73.1); Platelet Count Result 246 k/mm3 (150-375); Red Blood Count 4.29 M/mm3 (4.2-5.4); Red Cell Distribution Width 14.6 % (11.5-14.5); White Blood Count 9.4 K/mm3 (4.5-10.0)
[2020-09-13 06:23] LABS: Alanine Aminotransferase 19 U/L (4-35); Albumin Level 3.2 g/dL (3.5-5.1); Alkaline Phosphatase 114 U/L (38-126); Anion Gap 6 mmol/L (8-16); Aspartate Amino Transferase 34 U/L (14-36); Bilirubin,Total 0.7 mg/dL (0.2-1.3); Blood Urea Nitrogen 41 mg/dL (7-17); Calcium 8.6 mg/dL (8.4-10.2); Carbon Dioxide 30 mmol/L (22-30); Chloride 98 mmol/L (98-107); Estimated CRCL calculation 31 ml/min; Estimated Glomerular Filt Rate 34; Glucose 203 mg/dL (65-105); Potassium 3.8 mmol/L (3.4-5.0); Sodium 134 mmol/L (137-145)
[2020-09-13] MEDS: hydrALAZINE HCL 50 MG TABLET 100 MG PO ×3 (09:07→18:23)
[2020-09-13] MEDS: ASCORBIC ACID 500 MG TABLET PO (09:07)
[2020-09-13] MEDS: CLOPIDOGREL BISULFATE 75 MG TABLET PO (09:07)
[2020-09-13] MEDS: CHOLECALCIFEROL 1,000 UNITS TABLET 1000 UNITS PO (09:07)
[2020-09-13] MEDS: buPROPion HCL XL (24 HR) 150 MG TABCR 300 MG PO (09:08)
[2020-09-13] MEDS: SENNOSIDES 8.6 MG TABLET PO ×2 (09:08→18:23)
[2020-09-13] MEDS: ASPIRIN 81 MG ENTERIC TABLET PO (09:08)
[2020-09-13] MEDS: hydroCHLOROthiazide 25 MG TABLET PO (09:08)
[2020-09-13] MEDS: DOCUSATE SODIUM 100 MG CAPSULE PO ×2 (09:08→22:20)
[2020-09-13] MEDS: ZINC SULFATE 220 MG CAPSULE PO (09:08)
[2020-09-13] MEDS: FLUoxetine HCL 20 MG CAPSULE 60 MG PO (09:09)
[2020-09-13] MEDS: DEXAMETHASONE SOD PHOS INJ 4 MG/ML VIAL 6 MG IV PUSH (09:09)
[2020-09-13] MEDS: GABAPENTIN 100 MG CAPSULE PO ×3 (09:09→18:23)
[2020-09-13] MEDS: INSULIN ASPART (*BKC) 100 UNITS/ML SUB-Q ×3 (09:09→18:24)
[2020-09-13] MEDS: METOPROLOL TARTRATE 25 MG TABLET PO ×2 (09:10→22:20)
[2020-09-13 09:55] LABS: Glucose Point of Care 253 (65-105)
[2020-09-13] MEDS: polyethylene glycoL 3350 17 GM POWD.PACK PO (10:26)
[2020-09-13] MEDS: ACETAMINOPHEN 325 MG TABLET 650 MG PO (10:32)
--- NOTE | 2020-09-13 11:54 | PM.IMPN ---
Progress Note: A&P Assessment and Plan (1) Nausea & vomiting: Code(s): R11.2 - Nausea with vomiting, unspecified Status: Acute Assessment and Plan: Most likely related to gastroparesis secondary to diabetes mellitus treated conservatively IV hydration Cannot give Reglan as patient also on SSRI (2) Suspected 2019-nCoV infection: Code(s): Z20.822 - Contact with and (suspected) exposure to COVID-19 Status: Acute Assessment and Plan: COVID-19 pneumonia treated with dexamethasone (3) Dehydration: Code(s): E86.0 - Dehydration Status: Acute Assessment and Plan: IV fluid (4) Insulin dependent type 2 diabetes mellitus: Code(s): E11.9 - Type 2 diabetes mellitus without complications; Z79.4 - intermediate (current) use of insulin Status: Inactive Assessment and Plan: Will continue home regimen and monitor with sliding scale adjust her insulin as needed (5) Dyslipidemia: Code(s): E78.5 - Hyperlipidemia, unspecified Status: Inactive Assessment and Plan: Continue home regimen (6) Hypertension: Code(s): I10 - Essential (primary) hypertension Status: Inactive Assessment and Plan: Continue home regimen and monitor (7) Chronic kidney disease, stage 3: Code(s): N18.30 - Chronic kidney disease, stage 3 unspecified Status: Inactive Assessment and Plan: Acute on chronic kidney disease most likely secondary to dehydration secondary to nausea and vomiting secondary to gastroparesis treated with IV fluid (8) Obstructive sleep apnea: Code(s): G47.33 - Obstructive sleep apnea (adult) (pediatric) Status: Inactive Assessment and Plan: Follow-up with PCP Subjective Date/time seen: 09/13/20 11:54 Interval history: Patient seen and examined Patient was admitted to the hospital with nausea and vomiting was found to have most likely gastroparesis secondary to diabetes also CT scan of the abdomen was done was negative for significant intra-abdominal findings but showed probable COVID-19 pneumonia COVID-19 test was done was positive patient was treated with dexamethasone patient was not hypoxic did not have fever or chills Patient denies fever headache chest pain I am seeing the patient for gastroparesis Exam Narrative: Exam Narrative: Alert Chest no wheeze crackles Abdomen nontender nondistended CVS S1 + S2 Objective Data Vital Signs Vital Signs: Vital Signs - 24 hr 09/12/20 12:00 09/12/20 15:18 09/12/20 16:00 Temperature 96.9 F L 97.3 F L Pulse Rate 68 75 Respiratory Rate 22 H 18 Blood Pressure 176/70 H 161/69 H 162/60 H Pulse Oximetry 96 96 09/12/20 20:00 09/12/20 20:02 09/13/20 00:00 Temperature 99.2 F 98.9 F Pulse Rate 72 72 67 Respiratory Rate 16 16 Blood Pressure 143/56 H 135/61 Pulse Oximetry 95 98 09/13/20 04:00 09/13/20 08:21 09/13/20 09:10 Temperature 98.9 F 97.9 F Pulse Rate 70 76 72 Respiratory Rate 18 20 Blood Pressure 163/68 H 152/64 H Pulse Oximetry 94 96 Intake/Output Intake/Output: Intake & Output 09/10/20 09/11/20 09/12/20 09/13/20 23:59 23:59 23:59 23:59 Intake Total 1800 2360 1590 360 Output Total 750 1120 1500 450 Balance 1050 1240 90 -90 Meds/Results Medications: Active Medications Generic Name Dose Route Start Last Admin Trade Name Freq PRN Reason Stop Dose Admin Acetaminophen 650 mg 09/10/20 13:17 09/13/20 10:32 Acetaminophen 325 Mg Tablet PO 650 mg Q6H PRN Administration Mild Pain (1-3) or Fever Hydrocodone Bitart/Acetaminophen 1 tab 09/08/20 21:23 Hydrocodone/Acetaminophen (*Crx) 5-325 Mg Tablet PO Q4H PRN Pain Rated 4-6 Albuterol 2 puff 09/08/20 21:22 Albuterol Sulfate (*Sp) Aerosol 1 Puff INHALATION QIDRT PRN Shortness Of Breath Ascorbic Acid 500 mg 09/10/20 09:00 09/13/20 09:07 Ascorbic Acid 500 Mg Tablet PO 500 mg DAILY LORENZO Administration Aspi
--- NOTE | 2020-09-13 12:13 | PCPTNOTE ---
Patient refused treatment this session due to being too fatigued and nauseous. Explained the importance of getting up to Pt as it pertains to her COVID and pneumonia. Informed the Pt trying to sit up and coming to the EOB is better than not putting forth the effort. Pt continued to refuse stating You haven't had this virus. I'm just too fatigued and tired. I just can't. Explained to the Pt how her wants her to get up and work with therapy. Pt continued to refuse.
[2020-09-13 12:59] LABS: Glucose Point of Care 291 (65-105)
[2020-09-13] MEDS: INSULIN GLARGINE (*BKC) 100 UNITS/ML 14 UNITS SUB-Q (18:25)
[2020-09-13 18:32] LABS: Glucose Point of Care 215 (65-105)
[2020-09-13] MEDS: TAMSULOSIN HCL 0.4 MG CAPSULE PO (22:20)
[2020-09-13 22:24] LABS: Glucose Point of Care 147 (65-105)
[2020-09-14] VITALS (8 sets, daily range): BP systolic 138–167; BP diastolic 55–89; PULSE 50–111; RESP 16–18; TEMP 36.2–36.6; O2SAT 90–95
[2020-09-14 06:05] LABS: Basophils Percent Auto 0.2 % (0.2-1.2); Hematocrit 35.6 % (37.0-47.0); Hemoglobin 11.8 g/dL (12.0-15.0); Immature Granulocyte Absolute 0.11 K/mm3 (0.00-0.031); Immature Granulocyte Percent A 1.2 % (0-0.5); Lymphocytes Absolute Auto 0.88 K/mm3 (0.9-3.2); Lymphocytes Percent Auto 9.2 % (18.3-44.2); Mean Corpuscular HGB Conc 33.1 g/dl (32-36); Mean Corpuscular Hemoglobin 27.6 pg (26-34); Mean Corpuscular Volume 83.4 fl (80-100); Mean Platelet Volume 12.2 fl (7.4-10.4); Monocytes Absolute Auto 0.6 K/mm3 (0.1-0.6); Monocytes Percent Auto 6.3 % (2.6-8.5); Neutrophils Absolute Auto 7.9 K/mm3 (1.3-6.7); Neutrophils Percent Auto 83.1 % (45.5-73.1); Platelet Count Result 277 k/mm3 (150-375); Red Blood Count 4.27 M/mm3 (4.2-5.4); Red Cell Distribution Width 14.6 % (11.5-14.5); White Blood Count 9.5 K/mm3 (4.5-10.0)
[2020-09-14 06:54] LABS: Alanine Aminotransferase 18 U/L (4-35); Albumin Level 3.3 g/dL (3.5-5.1); Alkaline Phosphatase 110 U/L (38-126); Anion Gap 4 mmol/L (8-16); Aspartate Amino Transferase 33 U/L (14-36); Bilirubin,Total 0.7 mg/dL (0.2-1.3); Blood Urea Nitrogen 41 mg/dL (7-17); CRP 11.8 mg/dL (<1.0); Calcium 8.6 mg/dL (8.4-10.2); Carbon Dioxide 31 mmol/L (22-30); Chloride 98 mmol/L (98-107); Estimated CRCL calculation 27 ml/min; Estimated Glomerular Filt Rate 30; Glucose 124 mg/dL (65-105); Potassium 3.5 mmol/L (3.4-5.0); Sodium 133 mmol/L (137-145)
[2020-09-14] MEDS: DEXAMETHASONE SOD PHOS INJ 4 MG/ML VIAL 6 MG IV PUSH (09:04)
[2020-09-14] MEDS: DOCUSATE SODIUM 100 MG CAPSULE PO ×2 (09:04→20:47)
[2020-09-14] MEDS: polyethylene glycoL 3350 17 GM POWD.PACK PO (09:04)
[2020-09-14] MEDS: METOPROLOL TARTRATE 25 MG TABLET PO ×2 (09:05→20:47)
[2020-09-14] MEDS: CLOPIDOGREL BISULFATE 75 MG TABLET PO (09:05)
[2020-09-14] MEDS: GABAPENTIN 100 MG CAPSULE PO ×3 (09:05→18:55)
[2020-09-14] MEDS: buPROPion HCL XL (24 HR) 150 MG TABCR 300 MG PO (09:05)
[2020-09-14] MEDS: FLUoxetine HCL 20 MG CAPSULE 60 MG PO (09:05)
[2020-09-14] MEDS: ASPIRIN 81 MG ENTERIC TABLET PO (09:05)
[2020-09-14] MEDS: hydrALAZINE HCL 50 MG TABLET 100 MG PO ×3 (09:05→17:04)
[2020-09-14] MEDS: hydroCHLOROthiazide 25 MG TABLET PO (09:05)
[2020-09-14] MEDS: CHOLECALCIFEROL 1,000 UNITS TABLET 1000 UNITS PO (09:06)
[2020-09-14] MEDS: SENNOSIDES 8.6 MG TABLET PO ×2 (09:06→17:06)
[2020-09-14] MEDS: ZINC SULFATE 220 MG CAPSULE PO (09:06)
[2020-09-14] MEDS: ASCORBIC ACID 500 MG TABLET PO (09:06)
[2020-09-14 09:26] LABS: Glucose Point of Care 147 (65-105)
--- NOTE | 2020-09-14 09:36 | PM.DS ---
DS: Admitting Diagnosis Admitting Diagnosis Admitting Diagnosis: Nausea vomiting DS: Discharge Diagnosis Discharge Diagnosis (1) Nausea & vomiting: Code(s): R11.2 - Nausea with vomiting, unspecified Status: Acute Assessment and Plan: Most likely related to gastroparesis secondary to diabetes mellitus treated conservatively hydration Resumed Reglan Patient to follow-up with PCP to address long-term side effects from Reglan counseling was given and to address alternative (2) Suspected 2019-nCoV infection: Code(s): Z20.822 - Contact with and (suspected) exposure to COVID-19 Status: Acute Assessment and Plan: COVID-19 pneumonia treated with dexamethasone patient was not hypoxic continue to monitor (3) Dehydration: Code(s): E86.0 - Dehydration Status: Acute Assessment and Plan: IV fluid (4) Insulin dependent type 2 diabetes mellitus: Code(s): E11.9 - Type 2 diabetes mellitus without complications; 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 Status: Inactive Assessment and Plan: Will continue home regimen and monitor with sliding scale adjust her insulin as needed (5) Dyslipidemia: Code(s): E78.5 - Hyperlipidemia, unspecified Status: Inactive Assessment and Plan: Continue home regimen (6) Hypertension: Code(s): I10 - Essential (primary) hypertension Status: Inactive Assessment and Plan: Continue home regimen and monitor (7) Chronic kidney disease, stage 3: Code(s): N18.30 - Chronic kidney disease, stage 3 unspecified Status: Inactive Assessment and Plan: Acute on chronic kidney disease most likely secondary to dehydration secondary to nausea and vomiting secondary to gastroparesis treated with IV fluid repeat CMP in 1 week (8) Obstructive sleep apnea: Code(s): G47.33 - Obstructive sleep apnea (adult) (pediatric) Status: Inactive Assessment and Plan: Follow-up with PCP 1 week DS: Summary Hospital Course Hospital Course: Patient was admitted to the hospital with nausea and vomiting was found to have gastroparesis acute on top of chronic renal failure treated with IV fluid Reglan CT scan of the abdomen was negative for acute finding but showed probable viral pneumonia COVID-19 was was the patient was treated with dexamethasone patient was not hypoxic was not short of breath patient condition to be stable did not require oxygen during hospitalization patient will be discharged to rehab Time Spent with Patient Time attestation: Total time spent providing and/or coordinating discharge services: Exam Narrative: Exam Narrative: Alert Chest no wheeze crackles Abdomen nontender nondistended CVS S1 + S2 DS: Data Data Completed and Pending Labs on day of discharge: Labs from last 24 hours 09/14/20 09/14/20 09/14/20 09:23 05:31 05:31 WBC 9.5 RBC 4.27 Hgb 11.8 L Hct 35.6 L MCV 83.4 MCH 27.6 MCHC 33.1 RDW 14.6 H Plt Count 277 MPV 12.2 H Immature Gran % (Auto) 1.2 H Neut % (Auto) 83.1 H Lymph % (Auto) 9.2 L [place] % (Auto) 6.3 Eos % (Auto) 0.0 Baso % (Auto) 0.2 Lymph # (Auto) 0.88 L [place] # (Auto) 0.6 Eos # (Auto) 0.0 Baso # (Auto) 0.0 Abs Immat Gran (auto) 0.11 H Absolute Neuts (auto) 7.9 H Absolute Nucleated RBC 0.0 Nucleated RBC % 0.0 Sodium 133 L Potassium 3.5 Chloride 98 Carbon Dioxide 31 H Anion Gap 4 L BUN 41 H Creatinine 1.70 H Estim Creat Clear Calc 27 Estimated GFR 30 L Glucose 124 H POC Capillary Glucose 147 H Calcium 8.6 Total Bilirubin 0.7 AST 33 ALT 18 Alkaline Phosphatase 110 C-Reactive Protein 11.8 H Total Protein 7.0 Albumin 3.3 L 09/13/20 09/13/20 09/13/20 22:16 18:24 12:48 WBC RBC Hgb Hct MCV MCH MCHC RDW Plt Count MPV Immature Gran % (Auto) Neut % (Auto) Ly
[2020-09-14] MEDS: ONDANSETRON INJ 4 MG/2 ML VIAL IV PUSH (11:26)
[2020-09-14] MEDS: MAGNESIUM CITRATE 300 ML BTL 150 ML PO (12:19)
[2020-09-14] MEDS: SODIUM CHLORIDE 0.9% IV 1,000 ML 999 ML IV CONT (12:19)
[2020-09-14] MEDS: INSULIN ASPART (*BKC) 100 UNITS/ML SUB-Q ×2 (12:27→17:08)
[2020-09-14 12:54] LABS: Glucose Point of Care 274 (65-105)
--- NOTE | 2020-09-14 13:47 | PCOTNOTE ---
Attempted to see patient this pm, however patient refused stating, I need time to let my stomach settle.
--- NOTE | 2020-09-14 13:53 | PCPTNOTE ---
RN stated she gave the patient some laxative. Patient approached for therapy session. She had her eyes closed for most of the time the therapist was in the room. She stated her stomach was bothering her from it and did not want to do any therapy as she did not want to get sick. Encouragement given for participation. RN made aware of patient's refusal.
[2020-09-14] MEDS: INSULIN GLARGINE (*BKC) 100 UNITS/ML 14 UNITS SUB-Q (17:12)
[2020-09-14 18:23] LABS: Glucose Point of Care 216 (65-105)
[2020-09-14] MEDS: TAMSULOSIN HCL 0.4 MG CAPSULE PO (20:47)
[2020-09-14 20:50] LABS: Glucose Point of Care 145 (65-105)
[2020-09-15] VITALS (9 sets, daily range): BP systolic 107–153; BP diastolic 49–59; PULSE 52–67; RESP 16–18; TEMP 36.1–36.4; O2SAT 90–100
[2020-09-15 06:43] LABS: Basophils Percent Auto 0.4 % (0.2-1.2); Eosinophils Percent Auto 0.3 % (0-4.4); Hematocrit 34.2 % (37.0-47.0); Hemoglobin 11.2 g/dL (12.0-15.0); Immature Granulocyte Absolute 0.12 K/mm3 (0.00-0.031); Immature Granulocyte Percent A 1.5 % (0-0.5); Lymphocytes Absolute Auto 1.13 K/mm3 (0.9-3.2); Lymphocytes Percent Auto 14.4 % (18.3-44.2); Mean Corpuscular HGB Conc 32.7 g/dl (32-36); Mean Corpuscular Hemoglobin 27.3 pg (26-34); Mean Corpuscular Volume 83.2 fl (80-100); Mean Platelet Volume 11.8 fl (7.4-10.4); Monocytes Absolute Auto 0.7 K/mm3 (0.1-0.6); Monocytes Percent Auto 8.3 % (2.6-8.5); Neutrophils Absolute Auto 5.9 K/mm3 (1.3-6.7); Neutrophils Percent Auto 75.1 % (45.5-73.1); Platelet Count Result 282 k/mm3 (150-375); Red Blood Count 4.11 M/mm3 (4.2-5.4); Red Cell Distribution Width 14.6 % (11.5-14.5); White Blood Count 7.9 K/mm3 (4.5-10.0)
[2020-09-15 07:24] LABS: Alanine Aminotransferase 17 U/L (4-35); Albumin Level 3.1 g/dL (3.5-5.1); Alkaline Phosphatase 103 U/L (38-126); Anion Gap 4 mmol/L (8-16); Aspartate Amino Transferase 35 U/L (14-36); Bilirubin,Total 0.5 mg/dL (0.2-1.3); Blood Urea Nitrogen 48 mg/dL (7-17); CRP 6.6 mg/dL (<1.0); Calcium 8.3 mg/dL (8.4-10.2); Carbon Dioxide 30 mmol/L (22-30); Chloride 100 mmol/L (98-107); Estimated CRCL calculation 29 ml/min; Estimated Glomerular Filt Rate 32; Glucose 79 mg/dL (65-105); Potassium 3.4 mmol/L (3.4-5.0); Sodium 134 mmol/L (137-145)
[2020-09-15 08:20] LABS: Glucose Point of Care 88 (65-105)
[2020-09-15] MEDS: GABAPENTIN 100 MG CAPSULE PO ×3 (08:50→17:09)
[2020-09-15] MEDS: polyethylene glycoL 3350 17 GM POWD.PACK PO (08:50)
[2020-09-15] MEDS: POTASSIUM CHLORIDE 20 MEQ PACKET (FOR LIQUID) 40 MEQ PO (08:50)
[2020-09-15] MEDS: buPROPion HCL XL (24 HR) 150 MG TABCR 300 MG PO (08:50)
[2020-09-15] MEDS: METOPROLOL TARTRATE 25 MG TABLET PO ×2 (08:51→21:25)
[2020-09-15] MEDS: DEXAMETHASONE SOD PHOS INJ 4 MG/ML VIAL 6 MG IV PUSH (08:51)
[2020-09-15] MEDS: ZINC SULFATE 220 MG CAPSULE PO (08:51)
[2020-09-15] MEDS: hydrALAZINE HCL 50 MG TABLET 100 MG PO ×3 (08:52→17:07)
[2020-09-15] MEDS: DOCUSATE SODIUM 100 MG CAPSULE PO ×2 (08:52→21:25)
[2020-09-15] MEDS: SENNOSIDES 8.6 MG TABLET PO ×2 (08:52→17:09)
[2020-09-15] MEDS: CHOLECALCIFEROL 1,000 UNITS TABLET 1000 UNITS PO (08:52)
[2020-09-15] MEDS: FLUoxetine HCL 20 MG CAPSULE 60 MG PO (08:52)
[2020-09-15] MEDS: ASCORBIC ACID 500 MG TABLET PO (08:53)
[2020-09-15] MEDS: ASPIRIN 81 MG ENTERIC TABLET PO (08:53)
[2020-09-15] MEDS: hydroCHLOROthiazide 25 MG TABLET PO (08:53)
[2020-09-15] MEDS: CLOPIDOGREL BISULFATE 75 MG TABLET PO (08:53)
--- NOTE | 2020-09-15 11:52 | PCOTNOTE ---
Attempted to see patient this am, however patient refused stating, No, I haven't had a bowel movement yet. I feel like I could go soon. Encouraged patient to use bedside commode with assistance, however patient refused insisting on using bed carbajal. Pt declined all ADLs stating she already completed.
[2020-09-15] MEDS: INSULIN ASPART (*BKC) 100 UNITS/ML SUB-Q ×2 (13:02→17:11)
[2020-09-15 13:26] LABS: Glucose Point of Care 232 (65-105)
--- NOTE | 2020-09-15 14:33 | PM.IMPN ---
Progress Note: A&P Assessment and Plan (1) Nausea & vomiting: Code(s): R11.2 - Nausea with vomiting, unspecified Status: Acute Assessment and Plan: 09/15/20 14:33 patient is 69-year-old female with history of type 2 diabetes insulin dependent, with diabetic gastroparesis and persistent nausea or vomiting patient presented emergency department with the complaints of nausea or vomiting CT scan of the abdomen was done to further evaluate, did not show significant abdominal pathology however the lung bases suggest COVID-19 pneumonia ground-glass appearance although see denies any complaint of cough shortness of breath fever or chills, patient is very hard of hearing unable to provide detailed review of symptoms or history, is been isolated, will follow-up and COVID, patient is treated with doxycycline and Rocephin will follow-up on COVID if positive will start the patient on dexamethasone, remdesivir and further recommendation to follow. 09/10/20 today patient COVID test is positive I have started the patient dexamethasone, vitamin-D, vitamin-C, zinc and patient is receiving oxygen, unable to give patient remdesivir as creatinine is elevated and GFR is 23, patient also has a complaint of nausea and constipation, unable to give patient Reglan interaction with SSRI, will get the patient Colace and MiraLax scheduled, patient is very hard of hearing and currently is quite somnolent will continue present management and further recommendation to follow. 09/11 patient has been without fever and not requiring any oxygen while in hospital patient does not show any overt signs or symptoms of COVID, is still complains of nausea and upset stomach, be have given her Colace and MiraLax possible diabetic gastroparesis, patient has a history injury to lower extremity difficult to ambulate, due to patient persistent nausea patient has difficulty participating in physical therapy however patient will benefit from acute rehab. I have discuss patient daughter who is her caregiver and she is positive for COVID and feeling well and if patient returns home it will be difficulty to manage as patient assistance her ADL. 09/12 patient is a COVID positive but has no fever and not requiring any oxygen, patient has persisting nausea upset stomach, patient has a history of diabetes most likely diabetic gastroparesis, unable to take reglan due to SSRI, last BM was yesterday, and giving patient Colace and MiraLax patient also has a injuryto lower extremity and has a cast. Due to nausea and pain in lower ext, it is painful for patient to do the physical therapy however patient will benefit from a [facility] facility, will continue to monitor 09/15 patient is a COVID positive remains clinically stable without fever or requiring oxygen however patient has not had a bowel movement for several days patient being treated with Colace, MiraLax and magnesium citrate,without any relief. today patient states her stomach is hyperactive but patient has not passing any gas, still has nausea, will do the KUB to further evaluate, did participate in physical therapy today will encourage this will help move her bowel and we can transfer patient to rehab, continue to monitor and further recommendation to follow (2) Suspected 2019-nCoV infection: Code(s): Z20.822 - Contact with and (suspected) exposure to COVID-19 Status: Acute Assessment and Plan: Follow-up intestine plan accordingly (3) Dehydration: Code(s): E86.0 - Dehydration Status: Acute Assessment and Plan: Will gently hydrate the patient (4) Insulin dependent type 2 diabetes mellitus: Code(s): E11.9 - Type 2 diabetes mellitus without complications; Z79.4 - group home (current) use of insulin Status: Inactive Assessment and Plan: Will continue home regimen and monitor with sliding scale adjust her insulin as needed (5) Dyslipidemia: Code(s): E78.5 - Hyperlipidemia, unsp
[2020-09-15] MEDS: INSULIN GLARGINE (*BKC) 100 UNITS/ML 14 UNITS SUB-Q (17:10)
[2020-09-15 19:36] LABS: Glucose Point of Care 266 (65-105)
[2020-09-15 20:45] LABS: Glucose Point of Care 205 (65-105)
[2020-09-15] MEDS: TAMSULOSIN HCL 0.4 MG CAPSULE PO (21:25)
[2020-09-16 04:00] VITALS: BP 145/50; PULSE 61; RESP 18; TEMP 36.1; O2SAT 93
[2020-09-16 06:34] LABS: Basophils Percent Auto 0.4 % (0.2-1.2); Eosinophils Percent Auto 0.2 % (0-4.4); Hemoglobin 11.1 g/dL (12.0-15.0); Immature Granulocyte Absolute 0.15 K/mm3 (0.00-0.031); Immature Granulocyte Percent A 1.6 % (0-0.5); Lymphocytes Absolute Auto 0.96 K/mm3 (0.9-3.2); Lymphocytes Percent Auto 10.3 % (18.3-44.2); Mean Corpuscular HGB Conc 33.6 g/dl (32-36); Mean Corpuscular Hemoglobin 27.8 pg (26-34); Mean Corpuscular Volume 82.5 fl (80-100); Mean Platelet Volume 11.5 fl (7.4-10.4); Monocytes Absolute Auto 0.7 K/mm3 (0.1-0.6); Monocytes Percent Auto 7.3 % (2.6-8.5); Neutrophils Absolute Auto 7.4 K/mm3 (1.3-6.7); Neutrophils Percent Auto 80.2 % (45.5-73.1); Platelet Count Result 298 k/mm3 (150-375); Red Cell Distribution Width 14.6 % (11.5-14.5); White Blood Count 9.3 K/mm3 (4.5-10.0)
[2020-09-16 06:46] LABS: Alanine Aminotransferase 17 U/L (4-35); Albumin Level 3.1 g/dL (3.5-5.1); Alkaline Phosphatase 104 U/L (38-126); Anion Gap 4 mmol/L (8-16); Aspartate Amino Transferase 34 U/L (14-36); Bilirubin,Total 0.5 mg/dL (0.2-1.3); Blood Urea Nitrogen 43 mg/dL (7-17); CRP 4.3 mg/dL (<1.0); Calcium 8.2 mg/dL (8.4-10.2); Carbon Dioxide 31 mmol/L (22-30); Chloride 101 mmol/L (98-107); Estimated CRCL calculation 33 ml/min; Estimated Glomerular Filt Rate 37; Glucose 98 mg/dL (65-105); Potassium 3.2 mmol/L (3.4-5.0); Sodium 136 mmol/L (137-145)
[2020-09-16 08:00] VITALS: BP 149/53; PULSE 66; RESP 16; TEMP 36.3; O2SAT 93
[2020-09-16 08:43] LABS: Glucose Point of Care 100 (65-105)
[2020-09-16] MEDS: FLUoxetine HCL 20 MG CAPSULE 60 MG PO (08:56)
[2020-09-16] MEDS: hydrALAZINE HCL 50 MG TABLET 100 MG PO ×2 (08:56→12:59)
[2020-09-16] MEDS: buPROPion HCL XL (24 HR) 150 MG TABCR 300 MG PO (08:56)
[2020-09-16] MEDS: polyethylene glycoL 3350 17 GM POWD.PACK PO (08:56)
[2020-09-16 08:57] VITALS: PULSE 64
[2020-09-16] MEDS: METOPROLOL TARTRATE 25 MG TABLET PO (08:57)
[2020-09-16] MEDS: GABAPENTIN 100 MG CAPSULE PO ×2 (08:57→12:59)
[2020-09-16] MEDS: DEXAMETHASONE SOD PHOS INJ 4 MG/ML VIAL 6 MG IV PUSH (08:58)
[2020-09-16] MEDS: CHOLECALCIFEROL 1,000 UNITS TABLET 1000 UNITS PO (08:58)
[2020-09-16] MEDS: ASPIRIN 81 MG ENTERIC TABLET PO (08:58)
[2020-09-16] MEDS: SENNOSIDES 8.6 MG TABLET PO (08:58)
[2020-09-16] MEDS: ASCORBIC ACID 500 MG TABLET PO (08:58)
[2020-09-16] MEDS: hydroCHLOROthiazide 25 MG TABLET PO (08:59)
[2020-09-16] MEDS: CLOPIDOGREL BISULFATE 75 MG TABLET PO (08:59)
[2020-09-16] MEDS: ZINC SULFATE 220 MG CAPSULE PO (08:59)
--- NOTE | 2020-09-16 11:38 | PM.DS ---
DS: Admitting Diagnosis Admitting Diagnosis Admitting Diagnosis: Chief Complaint: Nausea and vomiting. DS: Discharge Diagnosis Discharge Diagnosis (1) Nausea & vomiting: Code(s): R11.2 - Nausea with vomiting, unspecified Status: Acute Assessment and Plan: 09/15/20 14:33 patient is 69-year-old female with history of type 2 diabetes insulin dependent, with diabetic gastroparesis and persistent nausea or vomiting patient presented emergency department with the complaints of nausea or vomiting CT scan of the abdomen was done to further evaluate, did not show significant abdominal pathology however the lung bases suggest COVID-19 pneumonia ground-glass appearance although see denies any complaint of cough shortness of breath fever or chills, patient is very hard of hearing unable to provide detailed review of symptoms or history, is been isolated, will follow-up and COVID, patient is treated with doxycycline and Rocephin will follow-up on COVID if positive will start the patient on dexamethasone, remdesivir and further recommendation to follow. 09/10/20 today patient COVID test is positive I have started the patient dexamethasone, vitamin-D, vitamin-C, zinc and patient is receiving oxygen, unable to give patient remdesivir as creatinine is elevated and GFR is 23, patient also has a complaint of nausea and constipation, unable to give patient Reglan interaction with SSRI, will get the patient Colace and MiraLax scheduled, patient is very hard of hearing and currently is quite somnolent will continue present management and further recommendation to follow. 09/11 patient has been without fever and not requiring any oxygen while in hospital patient does not show any overt signs or symptoms of COVID, is still complains of nausea and upset stomach, be have given her Colace and MiraLax possible diabetic gastroparesis, patient has a history injury to lower extremity difficult to ambulate, due to patient persistent nausea patient has difficulty participating in physical therapy however patient will benefit from acute rehab. I have discuss patient daughter who is her caregiver and she is positive for COVID and feeling well and if patient returns home it will be difficulty to manage as patient assistance her ADL. 09/12 patient is a COVID positive but has no fever and not requiring any oxygen, patient has persisting nausea upset stomach, patient has a history of diabetes most likely diabetic gastroparesis, unable to take reglan due to SSRI, last BM was yesterday, and giving patient Colace and MiraLax patient also has a injuryto lower extremity and has a cast. Due to nausea and pain in lower ext, it is painful for patient to do the physical therapy however patient will benefit from a [facility] facility, will continue to monitor 09/15 patient is a COVID positive remains clinically stable without fever or requiring oxygen however patient has not had a bowel movement for several days patient being treated with Colace, MiraLax and magnesium citrate,without any relief. today patient states her stomach is hyperactive but patient has not passing any gas, still has nausea, will do the KUB to further evaluate, did participate in physical therapy today will encourage this will help move her bowel and we can transfer patient to rehab, continue to monitor and further recommendation to follow (2) Suspected 2019-nCoV infection: Code(s): Z20.822 - Contact with and (suspected) exposure to COVID-19 Status: Acute Assessment and Plan: Follow-up intestine plan accordingly (3) Dehydration: Code(s): E86.0 - Dehydration Status: Acute Assessment and Plan: Will gently hydrate the patient (4) Insulin dependent type 2 diabetes mellitus: Code(s): E11.9 - Type 2 diabetes mellitus without complications; Z79.4 - long-term (current) use of insulin Status: Inactive Assessment and Plan: Will continue home regimen and monitor
[2020-09-16] MEDS: DOCUSATE SODIUM 100 MG CAPSULE PO (13:00)
--- NOTE | 2020-09-16 13:14 | PCOTNOTE ---
Attempted OT treatment, per RN patient is preparing to D/C from hospital in the next 10 minutes and cannot work with therapy at this time. will follow.
--- NOTE | 2020-09-16 19:43 | PC.NURSE ---
Addendum entered by Loree Akhtar RN 09/16/20 20:01: Joann also questioned me as to why we do not put the diagnosis by each medication listed on the discharge instructions. Original Note: Patient discharged to [facility] [address] from [facility] @ 1340 via ambulance. Report was given to Loyda by MONICA Hwang before patient discharged, who had no questions at this time. Received multiple phone calls from Joann Melendez between [phone] regarding discharge information. Joann stated she needed discharge medication list, [place] script, diet information related to consistency of liquids, COVID test results, urinary catheter information and diagnosis, etc. I then verbally read to her when the COVID test resulted, as well as the urinary catheter information and she stated that she cannot take verbal orders on this information. She also questioned me about faxing over all H&P, labs, etc. so that they can properly take care of the patient. She could not believe that all of this information is not sent to the receiving facility at discharge. I discussed these concerns/request with MONICA Hwang and she stated that it was given during report to Loyda. I called Dr. Crystal @ 1930 and discussed this with him. Ok to add additional discharge instructions, etc. to be faxed over to the facility. I also let Joann know that our discharge packets are put together by [facility] and that our staff nurses are responsible for giving report and printing discharge paperwork to be sent in the packet, and that we typically do not send all H&P, labs, etc. in the packet unless specifically needed for appropriate patient care.
== END 2020-09-16 13:40 | DRG 177 ==
LOC: ANHED 09:45 → ANH3MEDSUR 13:54
PROVIDERS: Physician Assistant; Admitting Provider Internal Medicine; Emergency Provider Emergency Medicine; PCP Family Medicine; Visit Provider Family Medicine
DX: U07.1 COVID-19 (principal); J12.82 Pneumonia due to coronavirus disease 2019; E11.43 Type 2 diabetes mellitus with diabetic autonomic (poly)neuropathy; K31.84 Gastroparesis; E11.319 Type 2 diabetes mellitus with unspecified diabetic retinopathy without macular edema; E86.0 Dehydration; E78.5 Hyperlipidemia, unspecified; G47.33 Obstructive sleep apnea (adult) (pediatric); E11.21 Type 2 diabetes mellitus with diabetic nephropathy; E11.42 Type 2 diabetes mellitus with diabetic polyneuropathy; I12.9 Hypertensive chronic kidney disease with stage 1 through stage 4 chronic kidney disease, or unspecified chronic kidney disease; N18.30 Chronic kidney disease, stage 3 unspecified; Z96.652 Presence of left artificial knee joint; Z79.4 Long term (current) use of insulin; I25.2 Old myocardial infarction; Z90.710 Acquired absence of both cervix and uterus; Z95.5 Presence of coronary angioplasty implant and graft; Z95.1 Presence of aortocoronary bypass graft; Z90.49 Acquired absence of other specified parts of digestive tract
CPT/HCPCS: 36415; 51701; 70450; 71045; 74018; 74177; 80048; 80053; 81001; 82728; 82948; 83036; 83615; 83690; 83735; 84443; 85025; 85027; 86140; 93005; 96361; 96365; 96366; 96367; 96375; 96376; 97110; 97161; 97165; 97530; 99285; A9270; C9803; G0378; J0131; J0360; J0696; J1100; J1815; J2405; J3475; J7030; Q9967; U0003; U0005